=== PATIENT | female | born 1995 | race African-American/Black ===

== ENCOUNTER 2018-11-09 12:55 | Emergency (ER) | payer OTHER ==
[~2018-11-09] VITALS: Ht 165.1 cm; Wt 113.4 kg
[2018-11-09 13:49] VITALS: BP 111/73
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
[2018-11-09] MEDS ORDERED: Methocarbamol 750mg tab ORAL ONE (14:30)
[2018-11-09] MEDS ORDERED: traMADol 50mg tab ORAL ONE (14:30)
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
--- NOTE | 2018-11-09 15:00 | NUR ---
ED Nurse Note: pt provided with a cane per pt's and pa's request. Meds well tolerated.
[2018-11-09] MEDS ORDERED: LIDODERM700 M1 TOPIC (15:15)
[2018-11-09] MEDS ORDERED: NAPROXEN500 M2 ORAL (15:15)
[2018-11-09] MEDS ORDERED: ROBAXIN-750750 MG PO (15:15)
[2018-11-09 15:39] VITALS: BP 116/68
--- NOTE | 2018-11-09 15:39 | NUR ---
ED Nurse Note: Pt cleared by health care Provider for discharge. DC instructions/prescription was given and explained to pt and verbalized understanding of teachings. All medical deviecs such as ID band removed. Pt is AAO x4, ambulatory and left with all personal belongings.
--- NOTE | 2018-11-09 16:03 | Diagnostic Imaging Report ---
Indication: Pain status post injury. Assess for fracture or foreign body. Technique: XRAY Foot Complete R Comparison: None FINDINGS/IMPRESSION: Bony mineralization within normal limits. There is no evidence of acute fracture or dislocation. Alignment and joint spaces are maintained. There is a punctate radiodensity in the soft tissues of tip of the distal second phalanx which measures less than 1 mm but may represent a tiny retained foreign body.
== END 2018-11-09 15:40 | disposition home or self-care (01) ==
LOC: EMR 13:21
DX: S39.012A Strain of muscle, fascia and tendon of lower back, initial encounter (principal); T14.8XXA Other injury of unspecified body region, initial encounter; S91.331A Puncture wound without foreign body, right foot, initial encounter; V43.52XA Car driver injured in collision with other type car in traffic accident, initial encounter; Y92.410 Unspecified street and highway as the place of occurrence of the external cause; Z88.1 Allergy status to other antibiotic agents
CPT/HCPCS: 99283